=== PATIENT | male | born 1990 ===

== ENCOUNTER 2020-05-16 10:15 | Emergency (ER) | payer OTHER ==
[~2020-05-16] VITALS: Ht 177.8 cm; Wt 125.0 kg
[2020-05-16] MEDS ORDERED: OXYcodone/APAP 5/325MG TABLET ONE (10:42)
[2020-05-16] MEDS ORDERED: KETOROLAC 30 MG/1 ML ONE (10:42)
--- NOTE | 2020-05-16 10:50 | NUR ---
PT HAS CO OF DYSURIA, HEMATURIA AND FLANK PAIN FOR COUPLE DAYS. INCREASED FREQUENCY. ACCOMPANIED BY [employer].
[2020-05-16] MEDS ORDERED: KETOROLAC 30 MG/1 ML IM ONE (11:00)
[2020-05-16] MEDS ORDERED: OXYcodone/APAP 5/325MG TABLET PO ONE (11:00)
[2020-05-16 11:14] LABS: BASOPHILS % (AUTO) 1 % (0-1); EOSINOPHILS % (AUTO) 0 % (1-7); LYMPHOCYTES % (AUTO) 14 % (22-44); MEAN CORPUSCULAR HEMOGLOBIN 31.5 pg (27.5-34.5); MEAN CORPUSCULAR HGB CONC 33.8 g/dL (33.2-36.2); MEAN PLATELET VOLUME 8.5 fL (7.4-10.4); MONOCYTES % (AUTO) 4 % (2-9); NEUTROPHILS % (AUTO) 81 % (42-75); PLATELET COUNT 301 x10^3/uL (130-400); RED BLOOD COUNT 5.19 x10^6/uL (4.38-5.82); RED CELL DISTRIBUTION WIDTH 14.1 % (9.4-14.8)
[2020-05-16 11:18] LABS: MD NO
--- NOTE | 2020-05-16 11:21 | NUR ---
[facility] SENT. PT TO CT
[2020-05-16 11:26] LABS: ALBUMIN 4.6 g/dL (3.4-5.0); CHLORIDE 112 mmol/L (98-107)
[2020-05-16 11:27] LABS: CREATININE 1.41 mg/dL (0.7-1.3)
[2020-05-16 11:38] LABS: ANION GAP 6 mmol/L (5-15)
[2020-05-16 11:40] LABS: MICROSCOPIC INDICATED
--- NOTE | 2020-05-16 12:00 | NUR ---
RESULTS PENDING. PT RESTING.
[2020-05-16 12:21] VITALS: BP 144/88
--- NOTE | 2020-05-16 12:35 | NUR ---
Patient/Caregiver given discharge instructions and they have confirmed that they understand the instructions. Patient ambulatory with steady gait.
== END 2020-05-16 12:37 | disposition home or self-care (01) ==
LOC: EDBD 10:15 → ED 12:26
DX: N20.2 Calculus of kidney with calculus of ureter (principal)
CPT/HCPCS: 36415; 74176; 80048; 81001; 82040; 85025; 96372; 99284; J1885